=== PATIENT | female | born 1940 | race Caucasian/White ===

== ENCOUNTER → 2016-11-08 | Outpatient (CLI) | payer MEDICARE, BC ==
[~2016-11-08] MED LIST: ACCUPRIL40 MG PO; ACCUPRIL40MGTAB PO; ATENOLOL50 MG PO; B COMPLEX1 TA2 PO; BONIVA PO; CADUET 5 MG-201 TAB PO; DOXEPIN25 MG PO; EFFEXOR XR37.5 MG PO; FERROUS SU325 MG/TAB PO; FOLIC ACID 40400 MCG PO; FOLIC ACID PO; FOSAMAX 70MG TA70 MG PO; HCTZ 25MG TAB25 MG PO; HCTZ 25MG25 MG PO; LEVOXYL0.075 MG PO; NEURONTIN300 MG PO; NEURONTIN600 MG/TAB PO; NORCO 325 MG-7.1 TAB PO; ROXICODONE 55 MG/TAB PO; TRICOR145 MG PO; TYLENOL 325MG325 MG PO; VITAMIN C BUFF500 MG PO; VITAMIN C250250 MG PO; VITAMIN D1000 IU PO; XARELTO20 MG PO
[2016-11-08 10:20] LABS: HEMATOCRIT 41.4 % (37.0-47.0); HEMOGLOBIN 13.8 g/dl (12.5-16.0); MEAN CELL VOLUME 89 fl (80.0-100.0); MEAN CORPUSCULAR HEMOGLOBIN 30 pg (27.0-31.0); MEAN CORPUSCULAR HGB CONC 33 g/dl (33.0-37.0); MEAN PLATELET VOLUME 10.9 fl (7.4-10.4); PLATELET COUNT 222 K/mm3 (130-400); RED BLOOD COUNT 4.65 M/mm3 (4.10-5.30); WHITE BLOOD COUNT 6.3 K/mm3 (4.8-10.8)
[2016-11-08 12:19] LABS: ERYTHROCYTE SEDIMENTATION RATE 20 mm/hr (0-30)
== END ==
LOC: COL.LAB 09:04
PROVIDERS: Orthopaedic Surgery
DX: M25.562 Pain in left knee (principal); Z96.652 Presence of left artificial knee joint

== ENCOUNTER 2017-05-04 17:39 | Emergency (ER) | payer MEDICARE, BC ==
[~2017-05-04] VITALS: Ht 165.1 cm; Wt 90.9 kg
[2017-05-04 17:41] VITALS: PULSE 68; TEMP 98.6
[2017-05-04 18:07] VITALS: BP 136/81
[2017-05-04] MEDS ORDERED: NORCO 325 MG-51 TAB PO (18:51)
== END 2017-05-04 19:10 | disposition home or self-care (01) ==
LOC: COL.ER 17:39
DX: I10 Essential (primary) hypertension (principal); Z96.653 Presence of artificial knee joint, bilateral; S42.031A Displaced fracture of lateral end of right clavicle, initial encounter for closed fracture; W01.198A Fall on same level from slipping, tripping and stumbling with subsequent striking against other object, initial encounter; Y92.009 Unspecified place in unspecified non-institutional (private) residence as the place of occurrence of the external cause

== ENCOUNTER 2018-04-11 03:29 | Emergency (ER) | payer MEDICARE, BC ==
[~2018-04-11] VITALS: Ht 165.1 cm; Wt 93.2 kg
[~2018-04-11 03:29] MED LIST changes: +NORCO 325 MG-51 TAB PO
[2018-04-11 03:34] VITALS: TEMP 97.6
[2018-04-11 04:01] LABS: BASO % 0.2 % (0.0-2.0); EOS % 0.1 % (0-4.0); GRAN # 10.7 (1.4-6.5); GRAN % 84.3 % (42.2-75.2); HEMATOCRIT 41.2 % (37.0-47.0); HEMOGLOBIN 13.7 g/dl (12.5-16.0); LYMPH # 1.3 (1.2-3.4); LYMPH % 10.4 % (20.0-51.0); MEAN CELL VOLUME 87 fl (80.0-100.0); MEAN CORPUSCULAR HEMOGLOBIN 29 pg (27.0-31.0); MEAN CORPUSCULAR HGB CONC 33 g/dl (33.0-37.0); MEAN PLATELET VOLUME 11.5 fl (7.4-10.4); MONO # 0.6 (0.1-0.6); MONO % 4.7 % (1.7-9.3); PLATELET COUNT 217 K/mm3 (130-400); RED BLOOD COUNT 4.75 M/mm3 (4.10-5.30)
[2018-04-11 04:08] LABS: ALBUMIN 3.7 gm/dL (3.5-5.0); BILIRUBIN,TOTAL 1.2 mg/dL (0.0-1.0); CALCIUM 10.1 mg/dL (8.4-10.2); CREATININE, serum 1.4 mg/dL (0.52-1.25); TOTAL PROTEIN 7.1 gm/dL (6.4-8.2)
[2018-04-11 04:29] LABS: INR 1.2 (0.8-3.0); PROTHROMBIN TIME 13.1 SECONDS (9.7-12.8)
[2018-04-11 04:36] LABS: TROPONIN-I 0.586 ng/mL (0.000-0.035)
[2018-04-11 06:49] VITALS: BP 104/51; PULSE 69
== END 2018-04-11 06:49 | disposition short-term general hospital (02) ==
LOC: COL.ER 03:29
PROVIDERS: Emergency Medicine
DX: I21.4 Non-ST elevation (NSTEMI) myocardial infarction (principal); E87.6 Hypokalemia; R57.0 Cardiogenic shock; I10 Essential (primary) hypertension; Z90.710 Acquired absence of both cervix and uterus
CPT/HCPCS: J1644; J3480; J7030; J7060

== ENCOUNTER 2020-01-03 17:34 | Inpatient (IN) | payer MEDICARE, BC ==
[~2020-01-03] VITALS: Ht 165.1 cm; Wt 95.9 kg
[~2020-01-03 17:34] MED LIST changes: +COSOPT 2%-0.5%10 ML OU; +IMODIUM A-D2 MG PO; +PROBIOTIC ACID1 EAC3 PO; +XALATAN EYE DROPS OD; +ZITHROMAX500 M2 PO
[2020-01-03 20:01] LABS: BASO % 0.3 % (0.0-2.0); EOS # 0.1 (0.0-0.7); EOS % 0.9 % (0-4.0); GRAN # 9.1 (1.4-6.5); GRAN % 77.8 % (42.2-75.2); HEMATOCRIT 41.9 % (37.0-47.0); HEMOGLOBIN 13.7 g/dl (12.5-16.0); LYMPH # 1.8 (1.2-3.4); LYMPH % 15.5 % (20.0-51.0); MEAN CELL VOLUME 90 fl (80.0-100.0); MEAN CORPUSCULAR HEMOGLOBIN 30 pg (27.0-31.0); MEAN CORPUSCULAR HGB CONC 33 g/dl (33.0-37.0); MEAN PLATELET VOLUME 11.5 fl (7.4-10.4); MONO # 0.6 (0.1-0.6); MONO % 5.2 % (1.7-9.3); PLATELET COUNT 207 K/mm3 (130-400); RED BLOOD COUNT 4.64 M/mm3 (4.10-5.30); REDCELL DISTRIBUTION WIDTH-CV 13.8 % (11.5-14.5)
[2020-01-03 20:43] LABS: COLLECTION METHOD CATHETER
[2020-01-03 20:52] LABS: MUCOUS Present /lpf; PH 5 (5-8); SQUAMOUS EPITHELIAL 0-2 /hpf; URINE APPEARANCE Clear; URINE BACTERIA None Seen /hpf; URINE BILIRUBIN Negative (NEGATIVE); URINE BLOOD Negative (NEGATIVE); URINE COLOR Yellow; URINE GLUCOSE Negative (NEGATIVE); URINE KETONE Negative (NEGATIVE); URINE LEUKOCYTE ESTERASE Negative (NEGATIVE); URINE NITRATE Negative (NEGATIVE); URINE PROTEIN(semi-quant) Negative (NEGATIVE); URINE RBC 0-2 /hpf; URINE UROBILINOGEN Negative (NEGATIVE)
[2020-01-03 21:25] LABS: INR 1.1 (0.8-3.0); PROTHROMBIN TIME 12.2 SECONDS (9.7-12.8)
[2020-01-03 21:36] LABS: ALBUMIN 3.9 gm/dL (3.5-5.0); BILIRUBIN,TOTAL 0.6 mg/dL (0.0-1.0); CALCIUM 9.8 mg/dL (8.4-10.2); CREATININE, serum 0.89 (0.52-1.25); POTASSIUM 3.9 mmol/L (3.4-5.0); TOTAL PROTEIN 7.2 gm/dL (6.4-8.2)
[2020-01-03 21:44] LABS: PRE ALBUMIN 19.6 mg/dL (17.6-36.0)
--- NOTE | 2020-01-03 21:50 | NUR ---
Pt. arrived to the floor via stretcher. Pt. is A&OX3, assessment complete. IV to lt. ac patent, IV fluids running per orders. Pt. reports pain to rt. knee at a 4 on pain scale at this time. Pt. denies further needs, call light within reach.
[2020-01-03 22:45] VITALS: BP 119/61; PULSE 73; TEMP 97.2
[2020-01-03 22:48] VITALS: BP 119/61; PULSE 73; TEMP 97.2
[2020-01-04 03:53] VITALS: BP 101/53; PULSE 64; TEMP 98.6
[2020-01-04 07:13] VITALS: BP 100/59; PULSE 71; TEMP 98.2
[2020-01-04 11:19] VITALS: BP 104/53; PULSE 65; TEMP 99.1
--- NOTE | 2020-01-04 11:36 | NUR ---
Asparagus Buncher met with the patient to complete initial intake. The patient lives alone in [facility]. The patient has a cane and can get a walker, if needed. The patient is independent with ADLs. The patient's PCP is Dr. Awad and receives medications from [facility] with no difficulties. The patient does not have advanced directives in the EMR. She has two adult children her daughter Judith and son, Gil. The patient will likely be needing post acute rehab at discharge. DEMAR discussed Medicare.gov's list of post acute rehab facilites. The patient's first choice is [facility] and [facility]. Referrals sent. SW contacted Judith to review the discharge plan. She was in agreeance with the plan of post acute rehab. DEMAR collaborated the above information with the patient's nurse.
--- NOTE | 2020-01-04 13:14 | NUR ---
PATIENT TAKEN DOWN FOR CT SCAN AND WILL BE TAKEN BACK TO OR AFTER.
--- NOTE | 2020-01-04 13:38 | NUR ---
PATIENT RETURNED TO ROOM FROM OR. OR TEAM RESCHEDULED SURGERY.
[2020-01-04 15:44] VITALS: BP 109/57; PULSE 74; TEMP 98.4
[2020-01-04 19:00] VITALS: BP 93/52; PULSE 78; TEMP 98.2
--- NOTE | 2020-01-04 19:11 | NUR ---
PATIENT PROVIDED WITH PRN PAIN MEDICATIONS THROUGHOUT THE SHIFT. PATIENT CURRENTLY RESTING IN BED. IV FLUIDS RUNNING. LEG IMMOBILIZER IN PLACE. PATIENT HAS NAPPED OFF AND ON THROUGHOUT THE AFTERNOON. REPORTED OFF TO FELI KEENE.
--- NOTE | 2020-01-04 21:45 | NUR ---
Pt. sitting up in bed. Pt. is A&OX3, assessment complete. IV to lt. ac patent. Immobilizer to rt. leg intact. Porter catheter to DD, clear yellow urine noted. Pt. denies further needs, call light within reach.
[2020-01-05] VITALS (7 sets, daily range): BP systolic 100–114; BP diastolic 49–61; PULSE 64–91; TEMP 98.3–100.3
[2020-01-05 07:02] LABS: BASO % 0.3 % (0.0-2.0); EOS # 0.1 (0.0-0.7); EOS % 0.7 % (0-4.0); GRAN # 6.1 (1.4-6.5); GRAN % 68.1 % (42.2-75.2); LYMPH # 1.9 (1.2-3.4); LYMPH % 20.7 % (20.0-51.0); MEAN CELL VOLUME 93 fl (80.0-100.0); MEAN CORPUSCULAR HGB CONC 31 g/dl (33.0-37.0); MEAN PLATELET VOLUME 11.5 fl (7.4-10.4); MONO # 0.9 (0.1-0.6); MONO % 9.8 % (1.7-9.3); PLATELET COUNT 136 K/mm3 (130-400); RED BLOOD COUNT 3.18 M/mm3 (4.10-5.30)
[2020-01-05 07:07] LABS: HEMATOCRIT 29.4 % (37.0-47.0); HEMOGLOBIN 9.2 g/dl (12.5-16.0); MEAN CORPUSCULAR HEMOGLOBIN 29 pg (27.0-31.0)
[2020-01-05 07:14] LABS: CALCIUM 8.5 mg/dL (8.4-10.2); CREATININE, serum 0.89 (0.52-1.25); MAGNESIUM 1.6 mg/dL (1.6-2.3); POTASSIUM 3.9 mmol/L (3.4-5.0)
--- NOTE | 2020-01-05 09:19 | NUR ---
PT RESTING IN BED, DENIES PAIN AT THIS TIME. ATE 100 % OF BREAKFAST WITH NO N/V OBSERVED OR REPORTED. AM ASSESSMENTS WNL, VSS, PT IS A/O X3, STERN CATHETER TO DD WITH PALE YELLOW URINE IN COLLECTION BAG.
[2020-01-05 10:26] LABS: IRON,SERUM 37 ug/dL (35-150)
[2020-01-05 10:36] LABS: TOTAL IRON BINDING CAPACITY 216 ug/dL (265-497)
--- NOTE | 2020-01-05 22:00 | NUR ---
Pt. laying in bed at this time. Pt. is A&OX3, assessment complete. INT to lt. ac patent. Pt. reports pain to RLE at a 5 on pain scale, gave pain meds per orders. Pt. denies further needs, call light within reach.
[2020-01-06] VITALS (11 sets, daily range): BP systolic 107–145; BP diastolic 37–84; PULSE 68–95; TEMP 98–98.9
[2020-01-06 07:34] LABS: CALCIUM 9.2 mg/dL (8.4-10.2); CREATININE, serum 0.88 (0.52-1.25); POTASSIUM 4.3 mmol/L (3.4-5.0)
[2020-01-06 08:02] LABS: HEMOGLOBIN 10.9 g/dl (12.5-16.0); MEAN CELL VOLUME 93 fl (80.0-100.0); MEAN CORPUSCULAR HEMOGLOBIN 30 pg (27.0-31.0); MEAN CORPUSCULAR HGB CONC 32 g/dl (33.0-37.0); MEAN PLATELET VOLUME 11.8 fl (7.4-10.4); PLATELET COUNT 127 K/mm3 (130-400); RED BLOOD COUNT 3.67 M/mm3 (4.10-5.30); REDCELL DISTRIBUTION WIDTH-CV 13.8 % (11.5-14.5)
[2020-01-06 08:05] LABS: HEMATOCRIT 34.1 % (37.0-47.0)
--- NOTE | 2020-01-06 09:59 | NUR ---
PT RESTING IN BED PLAN ON SURGERY LATER THIS PM. PT HAS BEEN NPO SINCE LAST NOC. PAIN CONTROLLED WITH PO MEDS CURRENTLY.
--- NOTE | 2020-01-06 18:36 | NUR ---
PT TO ROOM 343 PER BED WITH REPORT FROM MARJORIE EDMOND PACU @1800, PT IS A/O X3 LUNGS CLEAR, BOWEL SOUNDS PRESENT. RIGHT KNEE IN IROM BRACE WITH BULKY DRESSING. PEDAL PULSES PRESENT. PT BUNDLED UP IN BLANKETS. DAUGHTER AT BEDSIDE. PT DENIES PAIN. VSS.
--- NOTE | 2020-01-06 23:08 | NUR ---
Patient resting in bed. Finished up post op vitals. Patient was very cold and shivering but feels better now. Patient is on 2 L of oxygen.
[2020-01-07] VITALS (7 sets, daily range): BP systolic 89–139; BP diastolic 43–63; PULSE 70–84; TEMP 98.1–99.1
--- NOTE | 2020-01-07 06:30 | NUR ---
Patient requested pain medication this morning stating she is very sore.
--- NOTE | 2020-01-07 07:50 | NUR ---
PT RESTING IN BED SUPINE POSITION. RIGHT LEG WITH KNEE IMMOBILIZER IN PLACE AND RAZ WRAP OVER INCISION. DENIES PAIN. PICC LINE IN PLACE TO RIGHT UPPER ARM WITH IV FLUIDS OF D5LR INFUSING AT 125ML/HR. DRAINING WILL URINE IN STERN CATH. BP A LITTLE ON THE LOW SIDE OF 89/45. ENCOURAGED PT TO DRINK WATER. WILL MONITOR BP. DENIES FEELING DIZZY OR LIGHTHEADED. O2 ON AT 2L/NC. CALL LIGHT WITHIN REACH. BED ALARM ON.
--- NOTE | 2020-01-07 10:37 | NUR ---
HOSPITALIST NOTIFIED THAT LAB AND NURSING STAFF ARE UNABLE TO GET A PERIPHERAL LAB DRAW. PATIENTS IV HAS INFILTRATED. NURSING STAFF UNABLE TO ESTABLISH A PERIPHERAL IV SITE. HOSPITALIST STATE THAT SHE DOES NOT NEED A PICC LINE. FELI NOLASCO WITH [facility] CALLED AND MESSAGE LEFT FOR A PERIPHERAL IV SITE WITH BLOOD DRAW FOR LABS.
--- NOTE | 2020-01-07 12:33 | NUR ---
PATIENT REPORTS THAT HER PAIN HAS IMPROVED ALOT AFTER THE PO OXYCODONE. PATIENT WAS REPORTING HER PAIN AN 8-9/10 BEFORE PAIN MEDICATION. PATIENT REPORTS PAIN IS NOW AT A 7/10. PATIENT HAS BEEN NAPPING IN BED. PATIENT APPEARS TO BE COMFORTABLE. NO FACIAL GRIMACING, OR GAURDED MOVEMENTS. PATIENT REFUSING LUNCH. DIFFERENT MEAL OFFERED AND REFUSED. PATIENT CHIEF COMPLAINT IS A DRY MOUTH. PATIENT GIVEN GRAPE JUICE AND FRESH ICE WATER AT THIS TIME.
[2020-01-07 15:30] LABS: BASO % 0.2 % (0.0-2.0); EOS # 0.1 (0.0-0.7); EOS % 0.4 % (0-4.0); GRAN # 10.3 (1.4-6.5); GRAN % 80.2 % (42.2-75.2); LYMPH # 1.4 (1.2-3.4); LYMPH % 10.7 % (20.0-51.0); MEAN CELL VOLUME 89 fl (80.0-100.0); MEAN CORPUSCULAR HGB CONC 33 g/dl (33.0-37.0); MEAN PLATELET VOLUME 11.5 fl (7.4-10.4); MONO # 1.1 (0.1-0.6); MONO % 8.3 % (1.7-9.3); PLATELET COUNT 153 K/mm3 (130-400); RED BLOOD COUNT 2.84 M/mm3 (4.10-5.30); REDCELL DISTRIBUTION WIDTH-CV 13.3 % (11.5-14.5)
[2020-01-07 15:35] LABS: HEMATOCRIT 25.3 % (37.0-47.0); HEMOGLOBIN 8.4 g/dl (12.5-16.0); MEAN CORPUSCULAR HEMOGLOBIN 30 pg (27.0-31.0)
[2020-01-07 16:01] LABS: ALBUMIN 2.7 gm/dL (3.5-5.0); BILIRUBIN,TOTAL 0.8 mg/dL (0.0-1.0); CALCIUM 8.8 mg/dL (8.4-10.2); CREATININE, serum 0.84 (0.52-1.25); POTASSIUM 3.6 mmol/L (3.4-5.0); TOTAL PROTEIN 5.4 gm/dL (6.4-8.2)
[2020-01-08] VITALS (7 sets, daily range): BP systolic 92–125; BP diastolic 46–61; PULSE 74–87; TEMP 97.6–99.1
--- NOTE | 2020-01-08 04:54 | NUR ---
PT HAD AN UNEVENTFUL SHIFT. DENIED PAIN. CONTINUES WITH O2 AT 2L/NC. STERN CATH TO DD WITH WILL URINE DRAINING. PICC LINE TO UPPER RIGHT ARM WITH RAZ WRAP AROUND SITE. RLE WITH RAZ WRAP ON AND THEN IMMOBILIZER IN PLACE. ICE HAS BEEN REFILLED AND PLACED TO RIGHT KNEE AT LEAST TWICE. USES BEDPAN TIMES 1 WITH NO SUCCESS OF A BM. TAKES ORAL PILLS WITH NO DIFFICULTY. CALL LIGHT IN REACH. BED ALARM ON.
[2020-01-08 07:03] LABS: BASO % 0.2 % (0.0-2.0); EOS # 0.2 (0.0-0.7); EOS % 1.5 % (0-4.0); GRAN # 8.3 (1.4-6.5); GRAN % 77.7 % (42.2-75.2); LYMPH # 1.2 (1.2-3.4); LYMPH % 11.2 % (20.0-51.0); MEAN CELL VOLUME 90 fl (80.0-100.0); MEAN CORPUSCULAR HGB CONC 33 g/dl (33.0-37.0); MEAN PLATELET VOLUME 11.9 fl (7.4-10.4); MONO % 8.9 % (1.7-9.3); PLATELET COUNT 140 K/mm3 (130-400); RED BLOOD COUNT 2.78 M/mm3 (4.10-5.30); REDCELL DISTRIBUTION WIDTH-CV 13.4 % (11.5-14.5)
[2020-01-08 07:13] LABS: CALCIUM 8.9 mg/dL (8.4-10.2); CREATININE, serum 0.88 (0.52-1.25); HEMATOCRIT 25.1 % (37.0-47.0); HEMOGLOBIN 8.2 g/dl (12.5-16.0); MEAN CORPUSCULAR HEMOGLOBIN 29 pg (27.0-31.0); POTASSIUM 3.6 mmol/L (3.4-5.0)
--- NOTE | 2020-01-08 11:00 | NUR ---
Patient got up to the commode with 2-3 person assist. She is weak and needs several reminders on using the walker properly. Pain controlled with scheduled medications. Denies nausea. Dressing to right leg remains C/D/I. She has had her brace on. Ice to right leg. She had a small bowel movement when she got up to the [facility]. She is sitting up in the recliner comfortably. No other changes at this time. Call light within reach.
--- NOTE | 2020-01-08 18:00 | NUR ---
Patient sat up in the recliner most the day. Minimal complaints of pain. No complaints of nausea. RLE elevated on pillows. No other changes at this time. Call light within reach.
--- NOTE | 2020-01-08 19:23 | NUR ---
PT RESTING IN BED WATCHING TV. REPORT FROM DAY SHIFT RN. CALL LIGHT WITHIN REACH.
[2020-01-09 04:00] VITALS: BP 114/64; PULSE 85; TEMP 98.8
[2020-01-09 07:24] LABS: BASO % 0.4 % (0.0-2.0); EOS # 0.2 (0.0-0.7); EOS % 2.7 % (0-4.0); GRAN # 5.1 (1.4-6.5); GRAN % 68.8 % (42.2-75.2); LYMPH # 1.4 (1.2-3.4); MEAN CELL VOLUME 90 fl (80.0-100.0); MEAN CORPUSCULAR HGB CONC 33 g/dl (33.0-37.0); MEAN PLATELET VOLUME 11.7 fl (7.4-10.4); MONO # 0.6 (0.1-0.6); MONO % 8.7 % (1.7-9.3); PLATELET COUNT 161 K/mm3 (130-400); RED BLOOD COUNT 2.59 M/mm3 (4.10-5.30); REDCELL DISTRIBUTION WIDTH-CV 13.8 % (11.5-14.5)
[2020-01-09 07:28] LABS: HEMATOCRIT 23.2 % (37.0-47.0); HEMOGLOBIN 7.6 g/dl (12.5-16.0); MEAN CORPUSCULAR HEMOGLOBIN 29 pg (27.0-31.0)
[2020-01-09 07:34] LABS: CALCIUM 8.7 mg/dL (8.4-10.2); CREATININE, serum 0.73 (0.52-1.25); POTASSIUM 3.5 mmol/L (3.4-5.0)
[2020-01-09 08:53] VITALS: BP 121/57; PULSE 93; TEMP 98
--- NOTE | 2020-01-09 09:32 | NUR ---
DEMAR was contacted by hospitalist about transferring patient to [facility]. DEMAR contacted Ekta who indicated that she would have to speak with Nurse Management about staffing and she would call back. DEMAR also contacted patients 2nd choice [facility] who needed patient's weight baring status. DEMAR contacted surgical nurse and provided update.
[2020-01-09 12:08] VITALS: BP 136/62; PULSE 82; TEMP 97.2
[2020-01-09 15:45] VITALS: BP 131/70; PULSE 76; TEMP 97.9
--- NOTE | 2020-01-09 17:57 | NUR ---
Patient has been doing very well today with transfers. She was able to get up with 1-SB assist. She is having more pain today but she has been moving more. No complaints of nausea. She is nervous with transfers that she will fall. We have been getting her up with a walker and gait belt. No other changes at this time. Call light within reach.
[2020-01-09 20:05] VITALS: BP 121/58; PULSE 86; TEMP 98.2
--- NOTE | 2020-01-09 22:00 | NUR ---
Patient resting in bed with no complaints. Patient had gaming took out this morning and had only voided a small amount once. Got patient up to bedside commode and she voided again. Patient tolerated it and transferred well.
[2020-01-10] VITALS (7 sets, daily range): BP systolic 106–152; BP diastolic 36–84; PULSE 62–84; TEMP 97.5–98.7
[2020-01-10] MEDS ORDERED: FERROUS SU325 MG/TAB PO (07:20)
[2020-01-10] MEDS ORDERED: ASPI325T6 PO (07:21)
[2020-01-10] MEDS ORDERED: TYLENOL 500MG500 MG PO (07:21)
[2020-01-10] MEDS ORDERED: NORCO 325 MG-7.1 TAB PO (07:21)
[2020-01-10 08:04] LABS: BASO % 0.4 % (0.0-2.0); EOS # 0.3 (0.0-0.7); EOS % 2.7 % (0-4.0); GRAN % 73.8 % (42.2-75.2); LYMPH # 1.5 (1.2-3.4); LYMPH % 15.9 % (20.0-51.0); MEAN CELL VOLUME 91 fl (80.0-100.0); MEAN CORPUSCULAR HGB CONC 32 g/dl (33.0-37.0); MONO # 0.6 (0.1-0.6); MONO % 6.7 % (1.7-9.3); PLATELET COUNT 244 K/mm3 (130-400); RED BLOOD COUNT 3.12 M/mm3 (4.10-5.30); REDCELL DISTRIBUTION WIDTH-CV 14.2 % (11.5-14.5)
[2020-01-10 08:05] LABS: HEMATOCRIT 28.4 % (37.0-47.0); HEMOGLOBIN 9.1 g/dl (12.5-16.0); MEAN CORPUSCULAR HEMOGLOBIN 29 pg (27.0-31.0)
--- NOTE | 2020-01-10 13:35 | NUR ---
Talat, at [facility], reports that they are able to accept the patient. IPR Director, Ekta, reports that they are unable to take the patient, due to staffing. DEMAR met with the patient to update. The patient reports that she was really hoping to stay here and is not sure about [facility] now. SW contacted and updated the patient's daughter, Judith. Judith reports that they would [facility] over [facility]. DEMAR contacted and faxed a referral to Pat at [facility].
--- NOTE | 2020-01-10 16:21 | NUR ---
Pat, at [facility], reports that they are able to accept the patient for a skilled stay. Pat states that they will just need a new rapid test, since she was swabbed four days ago. DEMAR updated the clinical team. We are unable to do a rapid test. DEMAR contacted and updated the patient's daughter, Judith. DEMAR updated her on [facility] and how [facility] is an option. We would not need to wait for the new COVID results. Judith reports that she would prefer for the patient to go to [facility]. DEMAR updated the patient and she confirmed she would also prefer [facility]. DEMAR updated the patient's RN. The patient was swabbed again for COVID. Awaiting results. DEMAR updated Pat at [facility].
--- NOTE | 2020-01-10 18:30 | NUR ---
Patient has been doing very well today. She sat in the chair most the day. No complaints of nausea. Minimal complaints of pain. She is upset that she can not go to [facility]. We had to redo her COVID swab. She is getting around a lot better. No other changes at this time. Call light within reach.
[2020-01-11 04:37] VITALS: BP 121/58; PULSE 72; TEMP 98.1
[2020-01-11 07:46] VITALS: BP 138/59; PULSE 81; TEMP 97.9
--- NOTE | 2020-01-11 09:51 | NUR ---
The patient's COVID results came back negative. DEMAR notified and faxed the results to Pat at [facility]. Pat reports that they are able to take the patient today. DEMAR notified the clinical team and updated Talat at [facility]. The patient is to discharge today, 01/10, to [facility] for a skilled stay. Transportation was tentatively scheduled at 1100, via [facility]. DEMAR informed the patient's RN and her daughter (Judith), via phone. They were both agreeable to the time. No additional needs at this time.
--- NOTE | 2020-01-11 10:22 | NUR ---
Patient was a one assist to her bed from her recliner using walker and gait belt. Patient was a one mod assist with getting pants on. Patient currently resting in bed, call light in reach and awaiting for Melissa to come to remove her picc line. Patient denies any questions at this time.
--- NOTE | 2020-01-11 11:17 | NUR ---
Gave reporet to Solomon Arreaga at [facility] at 10:50 AM this morning. Patient was given prn Garrett prior to her leaving at 11:15 AM with [facility]. Patient Health Summary, Discharge Summary and Home meds printed and given to patient in manilla envelope to be given to nurse at [facility] group home facility. Belongings gathered including phone, recreation worker, clothes, shoes, books, purse, jewelry and other misc. items. Patient transported via wheelchair by FELI Nguyen and placed in [facility] transportation for ride to [facility] facility. Patient denied any questions.
--- NOTE | 2020-01-11 11:23 | NUR ---
Patient's picc was removed prior to discharge.
== END 2020-01-11 11:15 | DRG 468 ==
LOC: COL.ER 17:34 → SURG 19:34
PROVIDERS: Emergency Medicine; Family Medicine; Internal Medicine; Orthopaedic Surgery; Physician Assistant; ADMIT Hospitalist
PROC: 0SRT0J9 Replacement of Right Knee Joint, Femoral Surface with Synthetic Substitute, Cemented, Open Approach (ICD-10-PCS; 2020-01-06)
PROC: 0LQQ0ZZ Repair Right Knee Tendon, Open Approach (ICD-10-PCS; 2020-01-06)
PROC: 0SPT0JZ Removal of Synthetic Substitute from Right Knee Joint, Femoral Surface, Open Approach (ICD-10-PCS; principal; 2020-01-06 14:00)
PROC: 02HV33Z Insertion of Infusion Device into Superior Vena Cava, Percutaneous Approach (ICD-10-PCS; 2020-01-07)
DX: T84.012A Broken internal right knee prosthesis, initial encounter (principal); Y83.8 Other surgical procedures as the cause of abnormal reaction of the patient, or of later complication, without mention of misadventure at the time of the procedure; D64.9 Anemia, unspecified; G62.9 Polyneuropathy, unspecified; D72.829 Elevated white blood cell count, unspecified; I10 Essential (primary) hypertension; Z20.828 Contact with and (suspected) exposure to other viral communicable diseases; Z96.653 Presence of artificial knee joint, bilateral; Z90.49 Acquired absence of other specified parts of digestive tract; Z90.710 Acquired absence of both cervix and uterus
CPT/HCPCS: 99222-AI; 99231-AI; 99232-AI; 99233-AI; 99239; A9284; C1751; C1776; J0360; J0690; J1170; J1650; J2175; J2250; J2370; J2405; J2704; J2795; J3010; J3370; J7030; J7120; J7121; L1832; L1846

== ENCOUNTER → 2020-01-20 | Outpatient (REF) ==
[~2020-01-20] MED LIST changes: +ALMACONE 360 M360 ML PO; +ASPI325T6 PO; +BANATROL PLUS1 SOL PO; +BENTYL 10MG10 MG/CAP PO; +DEBROX OT; +DOXYCYCLINE 10100 MG PO; +ELIQUIS 5MG PO; +GOOD NEIGH1200 MG/15 PO; +PROTONIX 40MG T40 MG PO; +TYLENOL 500MG500 MG PO; +ZOFRAN ODT4 MG PO
[2020-01-20 16:18] LABS: BASO % 0.2 % (0.0-2.0); EOS # 0.1 (0.0-0.7); GRAN # 3.2 (1.4-6.5); HEMOGLOBIN 10.2 g/dl (12.5-16.0); LYMPH # 1.3 (1.2-3.4); LYMPH % 26.1 % (20.0-51.0); MEAN CELL VOLUME 93 fl (80.0-100.0); MEAN CORPUSCULAR HEMOGLOBIN 28 pg (27.0-31.0); MEAN CORPUSCULAR HGB CONC 30 g/dl (33.0-37.0); MEAN PLATELET VOLUME 10.2 fl (7.4-10.4); MONO # 0.4 (0.1-0.6); MONO % 7.3 % (1.7-9.3); PLATELET COUNT 317 K/mm3 (130-400); RED BLOOD COUNT 3.61 M/mm3 (4.10-5.30); REDCELL DISTRIBUTION WIDTH-CV 15.8 % (11.5-14.5)
[2020-01-20 16:36] LABS: HEMATOCRIT 33.7 % (37.0-47.0)
== END ==
LOC: ZCOL.LAB 16:12
PROVIDERS: Family Medicine
DX: D64.9 Anemia, unspecified (principal)

== ENCOUNTER → 2020-01-25 | Outpatient (REF) | LOC: ZCOL.LAB 12:15 | PROVIDERS: Family Medicine | DX: K59.1 Functional diarrhea (principal) ==

== ENCOUNTER → 2020-01-27 | Outpatient (CLI) | payer MEDICARE, BC ==
[~2020-01-27] MED LIST changes: -ALMACONE 360 M360 ML PO; -BANATROL PLUS1 SOL PO; -BENTYL 10MG10 MG/CAP PO; -DEBROX OT; -DOXYCYCLINE 10100 MG PO; -ELIQUIS 5MG PO; -GOOD NEIGH1200 MG/15 PO; -PROTONIX 40MG T40 MG PO; -ZOFRAN ODT4 MG PO
[2020-01-27 16:16] LABS: CLOSTRIDIUM DIFF A/B NEG; CLOSTRIDIUM DIFF A/B INTERP No C.diff present
== END ==
LOC: ZCOL.LAB 15:03
PROVIDERS: Family Medicine
DX: R19.7 Diarrhea, unspecified (principal)

== ENCOUNTER 2020-02-02 13:01 | Inpatient (IN) | payer MEDICARE, BC ==
[~2020-02-02] VITALS: Ht 165.1 cm; Wt 94.1 kg
[2020-02-02] MEDS ORDERED: BANATROL PLUS1 SOL PO (13:52)
[2020-02-02 14:00] LABS: BASO % 0.2 % (0.0-2.0); EOS # 0.1 (0.0-0.7); EOS % 0.8 % (0-4.0); GRAN % 79.1 % (42.2-75.2); LYMPH # 1.5 (1.2-3.4); LYMPH % 9.7 % (20.0-51.0); MEAN CELL VOLUME 94 fl (80.0-100.0); MEAN CORPUSCULAR HEMOGLOBIN 35 pg (27.0-31.0); MEAN CORPUSCULAR HGB CONC 37 g/dl (33.0-37.0); MEAN PLATELET VOLUME 10.6 fl (7.4-10.4); MONO # 1.4 (0.1-0.6); MONO % 9.1 % (1.7-9.3); PLATELET COUNT 388 K/mm3 (130-400); RED BLOOD COUNT 3.17 M/mm3 (4.10-5.30); REDCELL DISTRIBUTION WIDTH-CV 15.9 % (11.5-14.5)
[2020-02-02 14:01] LABS: HEMATOCRIT 29.7 % (37.0-47.0)
[2020-02-02 14:08] LABS: INR 1.3 (0.8-3.0); PROTHROMBIN TIME 14.5 SECONDS (9.7-12.8)
[2020-02-02 14:11] LABS: PARTIAL THROMBOPLASTIN TIME 32.7 SECONDS (26.0-37.0)
[2020-02-02 14:22] LABS: ALANINE AMINOTRANSFERASE 12 U/L (4-34); ALBUMIN 3.4 gm/dL (3.5-5.0); ALKALINE PHOSPHATASE 107 U/L (50-136); ANION GAP 8 mmol/L (7-16); AST,SGOT 41 U/L (15-37); BILIRUBIN,TOTAL 0.7 mg/dL (0.0-1.0); BLOOD UREA NITROGEN 21 mg/dL (7-17); C-REACTIVE PROTEIN 8.4 mg/dL (0.0-0.9); CALCIUM 9.8 mg/dL (8.4-10.2); CARBON DIOXIDE 27 mmol/L (22-30); CHLORIDE 105 mmol/L (98-107); CREATININE, serum 0.73 (0.52-1.25); GLUCOSE 124 mg/dL (74-106); POTASSIUM 3.7 mmol/L (3.4-5.0); SODIUM 140 mmol/L (137-145); TOTAL PROTEIN 7.3 gm/dL (6.4-8.2)
[2020-02-02 14:32] LABS: TROPONIN-I < 0.012 ng/mL (0.000-0.035)
--- NOTE | 2020-02-02 18:11 | NUR ---
PT SETTLED INTO ROOM, PT AOX4, PT REPORTS USING WALKER, PT DENIES PAIN AT THIS TIME, PT IN BRACE ON R LEG. IV IN RAC. PT PLEASANT. NO OTHER NEEDS AT THIS TIME.
[2020-02-02] MEDS ORDERED: GOOD NEIGH1200 MG/15 PO (18:21)
[2020-02-02] MEDS ORDERED: ALMACONE 360 M360 ML PO (18:23)
[2020-02-02] MEDS ORDERED: BENTYL 10MG10 MG/CAP PO (18:24)
[2020-02-02] MEDS ORDERED: DEBROX OT (18:25)
[2020-02-02 18:51] VITALS: BP 137/64; PULSE 95; TEMP 98.9
--- NOTE | 2020-02-02 19:29 | NUR ---
report received from FELI Cotter.
[2020-02-02 20:17] VITALS: BP 137/64; PULSE 95; TEMP 98.9
--- NOTE | 2020-02-02 22:00 | NUR ---
PT ALERT AND ORIENTED X4, ON O2 AT 2 LPM, DENIES ANY PAIN, ON TELE-SR. PT HAS A LONG BRACE ON HER RIGHT LOWER LEG, PT ABLE TO STAND AND WALK WITH WALKER AND ABLE TO GO TO BATHROOM WITH 1 ASSIST. SKIN BEHIND BRACE REMAINS INTACT. THERE IS A GAUZE ON HER RIGHT KNEE THAT IS C/D/I.
[2020-02-02 23:39] VITALS: BP 110/72; PULSE 77; TEMP 98.7
[2020-02-03] VITALS (7 sets, daily range): BP systolic 112–141; BP diastolic 50–100; PULSE 76–92; TEMP 98.9–99.7
[2020-02-03 07:15] LABS: BASO % 0.2 % (0.0-2.0); EOS # 0.1 (0.0-0.7); EOS % 1.1 % (0-4.0); GRAN % 75.3 % (42.2-75.2); HEMOGLOBIN 10.3 g/dl (12.5-16.0); LYMPH # 1.5 (1.2-3.4); LYMPH % 12.7 % (20.0-51.0); MEAN CELL VOLUME 92 fl (80.0-100.0); MEAN CORPUSCULAR HEMOGLOBIN 30 pg (27.0-31.0); MEAN CORPUSCULAR HGB CONC 32 g/dl (33.0-37.0); MEAN PLATELET VOLUME 10.7 fl (7.4-10.4); MONO # 1.2 (0.1-0.6); MONO % 9.6 % (1.7-9.3); PLATELET COUNT 374 K/mm3 (130-400); RED BLOOD COUNT 3.49 M/mm3 (4.10-5.30); REDCELL DISTRIBUTION WIDTH-CV 15.3 % (11.5-14.5)
--- NOTE | 2020-02-03 07:18 | NUR ---
report given to FELI German.
[2020-02-03 07:30] LABS: CALCIUM 9.4 mg/dL (8.4-10.2); CREATININE, serum 0.68 (0.52-1.25); POTASSIUM 3.5 mmol/L (3.4-5.0)
--- NOTE | 2020-02-03 11:19 | NUR ---
PATIENT 88% ON ROOM AIR, PLACED BACK ON 2LPM, SPO2 93%
--- NOTE | 2020-02-03 11:20 | NUR ---
Pt assessment completed and charted, medications administered per apr, pt A&O, laying in bed, on 2L NC, satting well. Pt denied pain during medical care evaluation specialist, stated she had some nausea, had just received zofran w/ warehouse distribution manager right before shift change around 0615. During physician rounds, pt stated she had terible abdominal pain. This nurse in to assess pt again, pt states she "hurts all over", unable to describe pain. Informed pt that she needs to let staff know when she is in pain, not just the physician. Pt states she is nauseous, cramping, hurting. Morphine and bentyl administered. RAC IV flushes w/o issues. Pt breathing even and unlabored. Pt had Rt knee surgery recently, currently has brace on, denies pain. Mild edema to BLE. Pt took few bites of breakfast this morning, had no appetite. Tele showed ST depression, will check EKG & Echo, also having CT for abd pain.
--- NOTE | 2020-02-03 12:24 | NUR ---
This nurse checked on pt, pt laying in bed, states she is doing "much better". Pt states she has a little discomfort to middle upper epigastric region, but feels ok laying there.
--- NOTE | 2020-02-03 13:54 | NUR ---
Tin Recovery Worker attempted to reach patient by room phone with no success. Tin Recovery Worker contacted patient's daughter, Judith (ph#[phone]) to complete intake and discuss discharge planning. Judith reports that patient broke her leg back in December and has been at [facility] for rehab. Before this, patient was [place] Judith advised that before patient broke her leg, she was very independent and was still driving. Patient would occasionally use a cane. Patient sees Dr. Awad for primary care. Judith advised that patient completed DPOA-HC documents at [facility]. Judith would like for patient to return to [facility] to finish her skilled stay, however wants patient's stomach problems to be resolved first. Judith reports that patient has been having stomach pain and cramping for the last couple weeks. After speaking with Judith, DEMAR contacted LISA Terry and requested she call Judith with update. DEMAR also requested PT/OT orders. DEMAR contacted Pat at [facility] and faxed clinical updates. Pat states they plan to take patient back upon discharge. Pat will ask staff at [facility] to fax over DPOA-HC forms. Pat is also going to check on if a new COVID test will need to be ordered. DEMAR will continue to follow.
--- NOTE | 2020-02-03 14:57 | NUR ---
Pt back from CT, requesting pain medication. IV was lost during CT. New IV started to LAC, 22g by FELI Marcum. Morphine PRN administered per apr.
--- NOTE | 2020-02-03 18:16 | NUR ---
Dr. Schmitt consult called.
[2020-02-03 20:16] LABS: INR 1.9 (0.8-3.0); PROTHROMBIN TIME 21.3 SECONDS (9.7-12.8)
[2020-02-03 20:19] LABS: PARTIAL THROMBOPLASTIN TIME 39.5 SECONDS (26.0-37.0)
--- NOTE | 2020-02-03 22:46 | NUR ---
Patient resting in bed with eyes closed. Patient opens her eyes upon calling her name. Patient alert and oriented. Patient denies SOB or dyspnea while at rest. Breathing even and unlabored. Patient denies N/V at this time. Abdomen soft and non-distended. Left AC IV site has no s/s of complications. Flushed with 5ml NS with no any issues. Started Heparin drip per MD order. Scheduled medications given per APR. Patient states she had fall 3 weeks ago and had right knee surgery done recently. Right knee incision site is open to air. No s/s of infections. Knee mobilizer braces on her right leg. Patient denies any pain or discomfort to her right leg. Call light within reach. Encouraged patient to call the nurse if she needs anything or needs to go to bathroom. Patient verbalized understanding.
[2020-02-04 03:41] LABS: CLOSTRIDIUM DIFF A/B NEG; CLOSTRIDIUM DIFF A/B INTERP No C.diff present
[2020-02-04 03:45] VITALS: BP 128/60; PULSE 87; TEMP 98
[2020-02-04 04:32] LABS: HEMOGLOBIN 10.9 g/dl (12.5-16.0); MEAN CELL VOLUME 96 fl (80.0-100.0); MEAN CORPUSCULAR HEMOGLOBIN 31 pg (27.0-31.0); MEAN CORPUSCULAR HGB CONC 32 g/dl (33.0-37.0); MEAN PLATELET VOLUME 10.5 fl (7.4-10.4); PLATELET COUNT 386 K/mm3 (130-400); RED BLOOD COUNT 3.55 M/mm3 (4.10-5.30)
[2020-02-04 04:41] LABS: CALCIUM 9.8 mg/dL (8.4-10.2); CREATININE, serum 0.85 (0.52-1.25); POTASSIUM 3.6 mmol/L (3.4-5.0)
--- NOTE | 2020-02-04 06:07 | NUR ---
Assisted patient to the bed-side commode throughout the shift. Patient was getting very tired and weak. 1 person maximum-assist needed for transfer to bed-side commode. Colonoscopy and endoscopy consent signed by patient at this time.
[2020-02-04 07:49] VITALS: BP 145/82; PULSE 88; TEMP 98.7
--- NOTE | 2020-02-04 10:00 | NUR ---
Pt assessment complete. Pt is laying in bed upon entry, she is A/O x4. Her breathing is even and unlabored on 2L O2 via NC. Pt denies SOB. No pain at this time. Heparin stopped for procedure at this time. Immobilizer in place to RLE. Pt finished bowel prep this am, 2 tap water enemas given due to stools being dark at this time. Some improvement noted. Pt denies N/V. POC discussed with patient who verbalizes understanding. No needs at this time. Call light within reach.
[2020-02-04 10:54] VITALS: BP 131/65; PULSE 98; TEMP 98.3
--- NOTE | 2020-02-04 11:14 | NUR ---
[employer] staffed with hospitialist regarding the patients need for a new Covid-19 test and discharge plan. The patient may be ready for discharge on Friday, 02/04. DEMAR contacted Pat and she reports there is no need for another Covid test and informed of possible Friday discharge. DEMAR faxed clinical updates to Pat. DEMAR contacted the patient's daughter, Judith to provide the above update. There are no additional needs at this time.
--- NOTE | 2020-02-04 12:06 | NUR ---
Pt left for procedure at this time.
[2020-02-04 16:28] VITALS: BP 112/56; PULSE 86; TEMP 98.4
--- NOTE | 2020-02-04 18:50 | NUR ---
Rested well after the procedure, denied any pain. Asked about H. Pylori results. No needs at this time.
[2020-02-04 19:10] VITALS: BP 108/54; PULSE 93; TEMP 98.6
[2020-02-04 23:01] VITALS: BP 118/63; PULSE 83; TEMP 99.3
--- NOTE | 2020-02-04 23:46 | NUR ---
Patient pleasant, A/O x4. Patient laying in bed upon enter the room. Patient denies any pain or discomfort. Denies SOB or dyspnea. Patient is on oxygen 2L via NC. Breathing is even and unlabored. Patient denies N/V. Immobilizer to right leg in place. Left AC IV site has no s/s of complications. Scheduled medications given per MAR. Patient took medications without difficulty. Call light within reach. Patient denies any needs at this time.
[2020-02-05 03:02] VITALS: BP 113/57; PULSE 79; TEMP 98.6
[2020-02-05 06:05] LABS: MEAN CELL VOLUME 95 fl (80.0-100.0); MEAN CORPUSCULAR HGB CONC 37 g/dl (33.0-37.0); MEAN PLATELET VOLUME 10.8 fl (7.4-10.4); PLATELET COUNT 344 K/mm3 (130-400); RED BLOOD COUNT 2.63 M/mm3 (4.10-5.30); REDCELL DISTRIBUTION WIDTH-CV 15.3 % (11.5-14.5)
[2020-02-05 06:07] LABS: HEMATOCRIT 25.1 % (37.0-47.0); HEMOGLOBIN 9.3 g/dl (12.5-16.0); MEAN CORPUSCULAR HEMOGLOBIN 35 pg (27.0-31.0)
--- NOTE | 2020-02-05 06:16 | NUR ---
Patient had a restful night. No c/o pain or discomfort. No acute distress noted. Call light within reach.
[2020-02-05 07:17] VITALS: BP 117/60; PULSE 79; TEMP 98.6
--- NOTE | 2020-02-05 08:11 | NUR ---
Pt assessment complete. Pt is sitting up in bed upon entry, she is A/O x4. Her breathing is even and unlabored on 1L O2 via NC. Pt denies SOB. No pain at this time. Pt asking about discharging with pain meds in case her pain flares up. Denies any N/V/D. Talked with patient about H.Pylori test and script for Protonix. Pt has immobilizer in place to RLE. No needs at this time. Call light within reach. Will continue to monitor.
[2020-02-05] MEDS ORDERED: DOXYCYCLINE 10100 MG PO (08:44)
[2020-02-05] MEDS ORDERED: ELIQUIS 5MG PO (08:46)
[2020-02-05] MEDS ORDERED: TYLENOL 500MG500 MG PO (08:48)
[2020-02-05] MEDS ORDERED: PROTONIX 40MG T40 MG PO (08:49)
[2020-02-05] MEDS ORDERED: NORCO 325 MG-51 TAB PO (08:49)
[2020-02-05] MEDS ORDERED: ZOFRAN ODT4 MG PO (08:56)
[2020-02-05 10:18] VITALS: BP 117/60; PULSE 79; TEMP 98.6
--- NOTE | 2020-02-05 12:20 | NUR ---
IV to LAC dc'd catheter intact. Pt assisted in dressing and wheeled out of facility at this time.
--- NOTE | 2020-02-05 13:05 | NUR ---
Report given to nurse at [facility].
--- NOTE | 2020-02-05 13:50 | NUR ---
Demar received a call from nurse indicated that patient is ready for discharge. Demar printed off discharge orders, contacted mary kim(spoke with Cherry about discharge time), and faxed over discharge forms. Cherry called DEMAR back and indicated a parts picker time of 1130. DEMAR informed nurse about parts picker time, and visited patient to answer questions and go over IM form, that patient signed. A copy was made, and one copy was put into the patients chart, while the other copy was given to the patient. DEMAR then contacted patients daughter Judith at [phone] and informed her of patients discharge.
== END 2020-02-05 12:30 | DRG 177 ==
LOC: COL.ER 13:01 → MEDICAL 15:58
PROVIDERS: Emergency Medicine; Internal Medicine Gastroenterology; Nurse Practitioner Family; Physician Assistant; Student in an Organized Health Care Education/Training Program; ADMIT Hospitalist
PROC: 0DBE8ZX Excision of Large Intestine, Via Natural or Artificial Opening Endoscopic, Diagnostic (ICD-10-PCS; principal; 2020-02-04 12:00)
PROC: 0DB98ZX Excision of Duodenum, Via Natural or Artificial Opening Endoscopic, Diagnostic (ICD-10-PCS; 2020-02-04 12:00)
DX: U07.1 COVID-19 (principal); J12.89 Other viral pneumonia; J96.01 Acute respiratory failure with hypoxia; I26.99 Other pulmonary embolism without acute cor pulmonale; K29.70 Gastritis, unspecified, without bleeding; T39.015A Adverse effect of aspirin, initial encounter; D64.9 Anemia, unspecified; I10 Essential (primary) hypertension; G62.9 Polyneuropathy, unspecified; H40.9 Unspecified glaucoma; K52.9 Noninfective gastroenteritis and colitis, unspecified; K64.0 First degree hemorrhoids
CPT/HCPCS: 99232-AI; 99233-AI; 99239; C9113; J0696; J1644; J1650; J2270; J2405; J2704; J3010; J7030; J7040; Q9967

== ENCOUNTER 2020-02-21 13:21 | Emergency (ER) | payer MEDICARE, BC ==
[~2020-02-21] VITALS: Ht 165.1 cm; Wt 90.9 kg
[~2020-02-21 13:21] MED LIST changes: +ALMACONE 360 M360 ML PO; +BANATROL PLUS1 SOL PO; +BENTYL 10MG10 MG/CAP PO; +DEBROX OT; +DOXYCYCLINE 10100 MG PO; +ELIQUIS 5MG PO; +GOOD NEIGH1200 MG/15 PO; +PROTONIX 40MG T40 MG PO; +ZOFRAN ODT4 MG PO
[2020-02-21 13:38] VITALS: TEMP 98
[2020-02-21 15:01] LABS: BASO # 0.1 (0.0-0.2); BASO % 0.7 % (0.0-2.0); EOS # 0.2 (0.0-0.7); EOS % 3.3 % (0-4.0); GRAN # 4.4 (1.4-6.5); GRAN % 65.9 % (42.2-75.2); HEMOGLOBIN 11.6 g/dl (12.5-16.0); LYMPH # 1.2 (1.2-3.4); LYMPH % 17.9 % (20.0-51.0); MEAN CELL VOLUME 91 fl (80.0-100.0); MEAN CORPUSCULAR HEMOGLOBIN 28 pg (27.0-31.0); MEAN CORPUSCULAR HGB CONC 31 g/dl (33.0-37.0); MEAN PLATELET VOLUME 10.9 fl (7.4-10.4); MONO # 0.8 (0.1-0.6); MONO % 11.5 % (1.7-9.3); PLATELET COUNT 311 K/mm3 (130-400); RED BLOOD COUNT 4.18 M/mm3 (4.10-5.30); REDCELL DISTRIBUTION WIDTH-CV 15.6 % (11.5-14.5)
[2020-02-21 15:15] LABS: ALANINE AMINOTRANSFERASE 14 U/L (4-34); ALKALINE PHOSPHATASE 64 U/L (50-136); ANION GAP 8 mmol/L (7-16); AST,SGOT 27 U/L (15-37); BILIRUBIN,TOTAL 0.6 mg/dL (0.0-1.0); BLOOD UREA NITROGEN 22 mg/dL (7-17); CALCIUM 10.4 mg/dL (8.4-10.2); CARBON DIOXIDE 29 mmol/L (22-30); CHLORIDE 101 mmol/L (98-107); CREATININE, serum 1.05 (0.52-1.25); GLUCOSE 110 mg/dL (74-106); LIPASE 89 U/L (23-300); POTASSIUM 4.3 mmol/L (3.4-5.0); SODIUM 137 mmol/L (137-145); TOTAL PROTEIN 8.2 gm/dL (6.4-8.2)
[2020-02-21 15:28] LABS: TROPONIN-I < 0.012 ng/mL (0.000-0.035)
[2020-02-21 16:40] VITALS: BP 127/89; PULSE 92
== END 2020-02-21 17:00 | disposition home or self-care (01) ==
LOC: COL.ER 13:21
PROVIDERS: Emergency Medicine
DX: U07.1 COVID-19 (principal); I26.99 Other pulmonary embolism without acute cor pulmonale; R79.1 Abnormal coagulation profile; Z90.710 Acquired absence of both cervix and uterus; Z79.01 Long term (current) use of anticoagulants

== ENCOUNTER 2023-01-24 09:22 | Emergency (ER) | payer OTHER ==
[~2023-01-24] VITALS: Ht 165.1 cm; Wt 86.4 kg
[2023-01-24 09:30] VITALS: TEMP 97.9
[2023-01-24] MEDS ORDERED: NORCO 325 MG-51 TAB PO (15:39)
[2023-01-24 15:55] VITALS: BP 129/75; PULSE 72
== END 2023-01-24 15:55 | disposition home or self-care (01) ==
LOC: COL.ER 09:22
DX: R07.2 Precordial pain (principal); M25.562 Pain in left knee; M25.512 Pain in left shoulder; Z96.652 Presence of left artificial knee joint; V89.2XXA Person injured in unspecified motor-vehicle accident, traffic, initial encounter; Y92.410 Unspecified street and highway as the place of occurrence of the external cause